=== PATIENT | female | born 1935 | race Caucasian/White ===

== ENCOUNTER 2019-10-09 16:35 | Emergency (ER) | payer OTHER, MEDICAID ==
[~2019-10-09] VITALS: Ht 170.2 cm; Wt 85.3 kg
[2019-10-09 17:09] VITALS: Ht 170.2 cm; Wt 85.3 kg
[2019-10-09 20:07] VITALS: BP 176/96
== END 2019-10-09 20:07 | disposition home or self-care (01) ==
LOC: ED 16:35
DX: N39.0 Urinary tract infection, site not specified (principal)
CPT/HCPCS: 87804; Q0092